=== PATIENT | female | born 1970 | race Two or more races ===

== ENCOUNTER 2016-09-05 12:50 | Emergency (ER) | payer OTHER ==
[2016-09-05 12:58] VITALS: BP 147/83; PULSE 78; TEMP 98.5; BMI 40.7
--- NOTE | 2016-09-05 13:31 | PDOC ---
History of Present Illness - General Chief Complaint: Pain Stated Complaint: BREAST PAIN Time Seen by Provider: 09/05/16 13:11 History Source: Patient Exam Limitations: No Limitations - History of Present Illness Initial Comments: 09/05/16 13:30 MY CHIEF COMPLAINT: RIGHT BREAST PAIN WITH BRUISING HISTORY OF PRESENT ILLNESS: She is a 46-year-old female with a history of repaired cystocele or rectocele here today complaining of noticing bruising to her right breast that started yesterday and was worse today. Patient denies any injury to her right breast or any change in her bra OR any heavy lifting. Patient reports last having a mammogram 2 years ago. Patient denies anyone in her family having any history of breast cancer. Patient denies any tenderness to her right breast. Patient has not noticed any nipple discharge or any dimpling of her skin or any lump to her right breast. Patient denies any fever. 09/05/16 13:55 Timing/Duration: getting worse Severity: mild Past History - Past Medical History Allergies/Adverse Reactions: Allergies Allergy/AdvReac Type Severity Reaction Status Date / Time No Known Drug Allergies Allergy Verified 09/05/16 12:55 Home Medications: Ambulatory Orders NK [No Known Home Medication] 09/05/16 Other medical history: DENIES. - Surgical History Abdominal Surgery: Yes (BTL) Cholecystectomy: Yes - Psycho/Social/Smoking Cessation Hx Anxiety: No Suicidal Ideation: No Smoking Status: No Smoking History: Never smoked Hx Alcohol Use: Yes (OCCAS) Drug/Substance Use Hx: No Substance Use Type: Alcohol Hx Substance Use Treatment: No Review of Systems - Review of Systems Able to Perform ROS?: Yes Constitutional: No: Symptoms Reported HEENTM: No: Symptoms Reported Respiratory: No: Symptoms reported Cardiac (ROS): No: Symptoms Reported ABD/GI: No: Symptoms Reported : No: Symptoms Reported Musculoskeletal: No: Symptoms Reported Integumentary: Yes: Other (BRUISING RT. BREAST SINCE YESTERDAY) Neurological: No: Symptoms reported *Physical Exam - Vital Signs Last Vital Signs Temp Pulse Resp BP Pulse Ox 98.5 F 78 19 147/83 97 09/05/16 12:55 09/05/16 12:55 09/05/16 12:55 09/05/16 12:55 09/05/16 12:55 - Physical Exam General Appearance: Yes: Appropriately Dressed Respiratory/Chest: positive: Lungs Clear, Normal Breath Sounds. negative: Chest Tender, Respiratory Distress Cardiovascular: positive: Regular Rhythm, Regular Rate, S1, S2 Comments:: 09/05/16 14:10 BREASTS: Symmetrical bilaterally, right breasts no nipple inversion noted or discharge or cracking of nipple, no peau d'orange, bruising rt. breast adjacent to rt.areola 9 cm X 2 cm, no masses or lumps palpated, no tender of bruised area rt. breast. Breasts no nipple inversion or discharge from nipple or cracking of nipple no peau d'orange or bruising of the left breast no masses or lumps palpated no tenderness of the left breast tissue. 09/05/16 14:11 09/05/16 14:17 Integumentary: positive: Other (see under breasts) ED Treatment Course - LABORATORY CBC & Chemistry Diagram: 09/05/16 14:00 Medical Decision Making - Medical Decision Making 09/05/16 13:58 She is a 46-year-old female with a history of repaired cystocele or rectocele here today complaining of noticing bruising to her right breast that started yesterday and was worse today. Patient denies any injury to her right breast or any change in her bra OR any heavy lifting. Patient reports last having a mammogram 2 years ago. Patient denies anyone in her family having any history of breast cancer. Patient denies any tenderness to her right breast. Patient has not noticed any nipple discharge or any dimpling of her skin or any lump to her right breast. Patient denies any fever. RIGHT BREAST BRUISE R/O ABSCESS PLAN: CBC WITH DIFF ULTRASOUND RT. BREAST no abscess seen at 10:30 to 11:00 axis, 8 cm from the nipple there is a benign Hypro at clinicechoic nodule by 3 x 5 MM and recommend 6 month follow-up target right breast ultrasound. Patient should also have a routine screening mammogram. This examination has been classified as BI-BRADS category 3. 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 breast ultrasound in 6 months *DC/Admit/Observation/Transfer Diagnosis at time of Disposition: Breast nodule - Discharge Dispostion Disposition: HOME Condition at time of disposition: Stable - Patient Instructions Additional Instructions: You MUST follow-up with your HOUSE PAINTER as soon as possible to schedule a routine mammogram, done today given to patient to give to her HOUSE PAINTER and for her records You will need to have a targeted right breast ultrasound in 6 months for follow- up Return to emergency room if any fever, discharge from right breast nipple or cracking of nipples or redness or increased warmth of right breast or any dimpling of skin Patient voiced understanding of discharge instructions and all questions were answered
[2016-09-05 14:43] LABS: BASOPHIL 1.2 % (0-2.0); EOSINOPHIL 2.1 % (0-4.5); MCH 29.2 pg (25.7-33.7); MCHC 33.5 g/dl (32.0-36.0); MEAN CELL VOLUME 87.1 fl (80-96); MEAN PLT VOLUME 8.2 fl (7.5-11.1); NEUTROPHILS 63.9 % (42.8-82.8); PLATELET COUNT 287 K/MM3 (134-434); RDW 15.1 % (11.6-15.6); WHITE BLOOD COUNT 8.8 K/mm3 (4.0-10.0)
== END 2016-09-05 15:22 | disposition home or self-care (01) ==
LOC: JERFT 12:50
DX: N63 Unspecified lump in breast (principal)
CPT/HCPCS: 36415; 76641-TC-RT; 85025; 99281-25

== ENCOUNTER 2024-03-11 06:38 | Emergency (ER) | payer OTHER ==
[2024-03-11 06:44] VITALS: RESP 18; BMI 37.9
[2024-03-11 08:29] LABS: HEMATOCRIT 34.4 % (32.4-45.2); HEMOGLOBIN 11.1 GM/dL (10.7-15.3); MCH 24.3 pg (25.7-33.7); MCHC 32.2 g/dl (32.0-36.0); MEAN CELL VOLUME 75.3 fl (80-96); MEAN PLT VOLUME 8.1 fl (7.5-11.1); PLATELET COUNT 316 10^3/uL (134-434); RBC 4.56 M/mm3 (3.60-5.2); WHITE BLOOD COUNT 6.5 K/mm3 (4.0-10.0)
[2024-03-11 08:50] LABS: POTASSIUM 3.4 mmol/L (3.5-5.1)
[2024-03-11 08:52] LABS: CALCIUM 8.8 mg/dL (8.5-10.1)
[2024-03-11 08:53] LABS: ALBUMIN 3.5 g/dl (3.4-5.0)
[2024-03-11 08:56] LABS: CREATININE 0.9 mg/dL (0.55-1.3)
[2024-03-11 08:57] LABS: BILIRUBIN,TOTAL 0.4 mg/dL (0.2-1); TOT PROT 7.5 g/dl (6.4-8.2)
[2024-03-11 09:44] LABS: EPI CELLS 14 /uL (0-25.1); HYALINE CASTS 2 /uL (0-3.1); PH,URINE 6.5 (5.0-8.0); URINE APPEARANCE CLEAR; URINE BACTERIA 746 /uL (0-1359); URINE BILIRUBIN NEGATIVE (NEGATIVE); URINE COLOR YELLOW; URINE GLUCOSE (UA) NEGATIVE (NEGATIVE); URINE KETONE NEGATIVE (NEGATIVE); URINE LEUK ESTERASE NEGATIVE (NEGATIVE); URINE NITRITE NEGATIVE (NEGATIVE); URINE PROTEIN TRACE (NEGATIVE); URINE RBC 42 /uL (0-23.9); URINE WBC 11 /uL (0-25.8)
[2024-03-11 09:48] LABS: HCG,QUALITATIVE URINE NEGATIVE
[2024-03-11 10:11] VITALS: BP 117/66; PULSE 54; TEMP 97.5
[2024-03-11 13:38] LABS: HIV INTERPRETATION NEGATIVE (NEGATIVE)
== END 2024-03-11 10:21 | disposition home or self-care (01) ==
LOC: JER 06:38
DX: R07.2 Precordial pain (principal); R61 Generalized hyperhidrosis; R20.0 Anesthesia of skin; R20.2 Paresthesia of skin; R68.83 Chills (without fever); Z20.822 Contact with and (suspected) exposure to COVID-19
CPT/HCPCS: 0241U-QW; 36415; 70450-TC; 71045-TC-FY; 80053; 81003; 84439; 84443; 84484; 84703; 85027; 86803; 87389; 93005; 93010; 99285-25